=== PATIENT | male | born 2000 | race Caucasian/White ===

== ENCOUNTER 2019-09-12 01:53 | Emergency (ER) | payer SELFPAY ==
[2019-09-12] MEDS ORDERED: NS 0.9% 1000 ML** 1,000 ML IV ONE (01:57)
--- NOTE | 2019-09-12 02:00 | ED ---
Laceration/Wound HPI - HPI Summary HPI Summary: This patient is a 19 year old M presenting to [facility] by EMS with a chief complaint of lacerations in arm since prior to arrival. Pt believe he fell slipped on "dog shit" in his neighbors yard and fell on the ground into glass. Pt denies LOC, BOB, nausea, vomiting, and trouble walking. He called EMS after blood was spurting. EMS put a pressure dressing on that controlled the bleeding. he denies any other injur except lacerations to right arm. Pt has no medical problems, and no allergies. Pt smoke, and drinks. Pt has had two surgeries on R knee. Pt does not know when he last had a tetanus shot. after patient was here for a few minutes, police arrive and fill out papers for patient to have a mental health exam. According to police, pt punched the window of a neighboring frat house. Police also state that his friends are quite concerned about him. per police, his friends reports that pt has SI, and has recently had problems with girlfriend and parents. also had a friend recently commit suicide. - History of Current Complaint Chief Complaint: Laceration Stated Complaint: R ARM LAC PER EMS Time Seen by Provider: 09/12/19 01:53 Hx Obtained From: Patient Mechanism of Injury: Sharp/Blunt Trauma Onset/Duration: Sudden Onset Aggravating: Nothing Alleviating: Compression Timing: Constant Onset Severity: Moderate Current Severity: Mild Pain Intensity: 2 Pain Scale Used: 0-10 Numeric Associated Signs & Symptoms: Pain - Allergy/Home Medications Allergies/Adverse Reactions: Allergies Allergy/AdvReac Type Severity Reaction Status Date / Time No Known Allergies Allergy Verified 09/12/19 01:59 PMH/Surg Hx/FS Hx/Imm Hx Sensory History: Denies: Hx Legally Blind, Hx Deafness Opthamlomology History: Denies: Hx Legally Blind EENT History: Denies: Hx Deafness - Surgical History Surgical History: Yes Surgery Procedure, Year, and Place: two surgeries on R knee. - Immunization History Date of Tetanus Vaccine: 09/12/2019 - Social History Occupation: Student Lives: Dormitory/Roommates Alcohol Use: Weekly Substance Use Type: Reports: None Smoking Status (MU): Light Every Day Tobacco Smoker Review of Systems Negative: Fever Negative: Vomiting, Nausea Positive: Other - laceration Negative: Syncope All Other Systems Reviewed And Are Negative: Yes Physical Exam - Summary Physical Exam Summary: General: Well-developed, Well-nourished male. No acute distress. HEENT: Normocephalic, Atraumatic. Eyes: Conjuctiva normal, PERRL. Oropharynx: Clear, mucous membranes moist, (-) exudates. Neck: Soft, FROM, (-) lymphadenopathy, (-) thyromegaly, (-) JVD. Cardiovascular: Normal sinus rhythm, (-) murmur. Lungs: Clear to auscultation bilaterally (-) wheezes, (-) rales, (-) rhonchi. Abdomen: Soft, non-tender, non-distended, (-) organomegaly, normal bowel sounds. Back: (-) CVA tenderness Extremities: No edema. Laceration most proximal to elbow, 4 stiches 3.5 cm, second laceration 8.5 cm, 14 stiches Inside laceration 7.5 cm, 14 stiches Skin: Warm, dry, (-) rash. Neuro: Alert and oriented x3,move all extremities equally. No ataxia. No gait disturbance. No sensory deficit. No amnesia. Psychiatric: Mood normal, affect normal. Triage Information Reviewed: Yes Vital Signs On Initial Exam: Initial Vital Signs Temp 98.7 F 09/12/19 01:53 Pulse 98 09/12/19 01:53 Resp 18 09/12/19 01:53 BP 146/90 09/12/19 01:53 Pulse Ox 95 09/12/19 01:53 Vital Signs Reviewed: Yes Procedures - Sedation Patient Received Moderate/Deep Sedation with Procedure: No - Laceration/Wound Repair 1 Location: upper extremity Description: Linear Anesthesia: Local, 2.0% Length, Depth and Shape: 3.5 cm lenth linear Laceration/Wound Explored: clean, no foreign body removed Suture Type: Nylon - 4-0 Number of Sutures: 4 Layer Closure?: Yes Sterile Dressing Applied?: Yes 2 Location: upper extremity Description: Stellate Anesthesia: Local, 2.0% Length, Depth and Shape: 8.5 cm length, 9 mm deep, stellate Laceration/Wound Explored: clean, no foreign body removed Closure: Multilayer Debridement: moderate Suture Type: Nylon Number of Sutures: 14 Layer Closure?: Yes Sterile Dressing Applied?: Yes 3 Location: upper extremity Description: Irregular Anesthesia: Local, 2.0% Length, Depth and Shape: 7.5 cm length, 7 mm deep, irregular Irrigated w/ Saline (ccs): 100 Laceration/Wound Explored: clean, no foreign body removed Closure: Multilayer Debridement: minimal Suture Type: Nylon Number of Sutures: 14 Layer Closure?: Yes Sterile Dressing Applied?: Yes Diagnostics - Laboratory Result Diagrams: 09/12/19 02:07 09/12/19 02:07 Lab Statement: Any lab studies that have been ordered have been reviewed, and results considered in the medical decision making process. - Radiology Forearm X-Ray Radiology Interpretation Completed By: ED Physician Summary of Radiographic Findings: Forearm X-Ray reveals per ED physician no foreign bodies, no fracture. Pending official radiology report. Laceration Repair Course/Dx - Course Course Of Treatment: 19 year old male presents by ambulance from [facility]. he states after drinking alcohol tonight he slipped in [facility] yard and must have fell on glass, sustaining three lacerations to right forearm. no LOC. police later state he punched neighboring [facility] window. also reports from his [facility] friends that he has been depressed and talking about hurting himself. patients wounds repaired as above. he his acutely intoxicated with alcohol. awaiting sobriety and mental health exam. signed out at change of shift - Clinical Impression Provider Diagnoses: Acute alcohol intoxication, Laceration of forearm, right Discharge ED - Sign-Out/Discharge Documenting (check all that apply): Sign-Out Patient Signing out patient TO: Luis Felipe Campoverde - pending sobriety Receiving patient FROM: Isabel Khan - Discharge Plan - Attestation Statements Document Initiated by Benitoibe: Yes Documenting Scribe: France Santos Provider For Whom Aldo is Documenting (Include Credential): Dr. Isabel Khan MD Scribe Attestation: France Holt scribed for Dr. Isabel Khan MD on 09/12/19 at 0613. Scribe Documentation Reviewed: Yes Provider Attestation: The documentation as recorded by the [email or web address] accurately reflects the service I personally performed and the decisions made by me, Dr. Isabel Khan MD Status of Scribe Document: Viewed
[2019-09-12] MEDS ORDERED: Bacitracin OINTMENT* 0.5% 0.5 oz TUBE TOPICAL ONE (02:02)
[2019-09-12] MEDS ORDERED: Tetan/Diph/Pertus SYR(Tdap)* 0.5 ML SYR(BOOSTRIX) use SYR contains LATEX IM ONE (02:02)
[2019-09-12 02:26] LABS: ABS Lymphocytes 1.1 10^3/ul (1.0-4.8); ABS Monocytes 0.5 10^3/ul (0-0.8); ABS Neutrophils 5.5 10^3/ul (1.5-7.7); Eosinophil % 0.2 %; Hematocrit 40 % (42-52); Lymphocyte % 15.9 %; Mean Corpuscular HGB Conc 35 g/dL (31-36); Mean Corpuscular Hemoglobin 31 pg (27-31); Mean Corpuscular Volume 88 fL (80-94); Mean Platelet Volume 8.6 fL (7.4-10.4); Platelet Count 231 10^3/uL (150-450); Red Blood Count 4.55 10^6 /uL (4.18-5.48); Red Cell Distribution Width 12 % (10-15); White Blood Count 7.2 10^3/uL (3.5-10.8)
[2019-09-12 02:35] LABS: INR 1.07 (0.82-1.09)
[2019-09-12 02:44] LABS: Albumin 4.5 g/dL (3.2-5.2); Albumin/Globulin Ratio 1.7 (1-3); BUN/Creatinine Ratio 18.5 (8-20); EGFR African American 89.9 (>60); EGFR Non-African American 74.3 (>60); Globulin 2.7 g/dL (2-4); Potassium 3.4 mmol/L (3.5-5.0); Total Bilirubin 0.4 mg/dL (0.2-1.0); Total Protein 7.2 g/dL (6.4-8.9)
[2019-09-12] MEDS ORDERED: Lidocaine 1% INJ* 10 MG/ML 30 ML SDV ONE (03:14)
[2019-09-12 03:45] LABS: Urine Benzodiazepine Screen None Detected (None Detect); Urine Opiates Screen None Detected (None Detect)
[2019-09-12] MEDS ORDERED: Acetaminophen TAB* 325 MG PO ONE (05:57)
--- NOTE | 2019-09-12 07:03 | ED ---
Progress - Progress Note Progress Note: This patient is a sign-out from Dr. Isabel Khan to Dr. Luis Felipe Campoverde at 0700 on 09/12/2019 at shift change pending sobriety and MHE. - Results/Orders Results/Orders: Right hand XR: SOFT TISSUE SWELLING. NO ACUTE OSSEOUS INJURY. IF SYMPTOMS PERSIST, RECOMMEND REPEAT IMAGING. Dr. Campoverde has reviewed this radiology report. Re-Evaluation - Re-Evaluation First Eval Re-Evaluation Time: 08:09 Comment: Ordered right hand XR for patient's right hand swelling. Third Eval Re-Evaluation Time: 08:22 Comment: Per production corrugator and Dr. Del Valle, patient is safe for discharge. Course/Dx - Course Course Of Treatment: Mr. Echols was medically cleared in the ED and underwent a MHE. They felt that he was stable for discharge. An xray was obtained of his hand as it swelled quite a bit while he was here. This was negative and he was advised RICE. - Diagnoses Provider Diagnoses: Laceration Discharge ED - Sign-Out/Discharge Documenting (check all that apply): Patient Departure - Discharge, Receiving Sign-Out Receiving patient FROM: Isabel Khan - Discharge Plan Condition: Stable Disposition: HOME Patient Education Materials: Care For Your Stitches (ED), Laceration (ED) Referrals: [facility] [Primary Care Provider] - - Billing Disposition and Condition Condition: STABLE Disposition: Home - Attestation Statements Document Initiated by Benitoibe: Yes Documenting Scribe: Manuel Archibald Provider For Whom Aldo is Documenting (Include Credential): Luis Felipe Campoverde MD Scribe Attestation: IManuel, scribed for Luis Felipe Campoverde MD on 09/12/19 at 0956. Scribe Documentation Reviewed: Yes Provider Attestation: The documentation as recorded by the Manuel sidhu accurately reflects the service I personally performed and the decisions made by me, Luis Felipe Campoverde MD Status of Scribe Document: Viewed
[2019-09-12 08:42] VITALS: BP 0/0
== END 2019-09-12 08:30 | disposition home or self-care (01) ==
LOC: ED 01:53
DX: F10.129 Alcohol abuse with intoxication, unspecified (principal); S51.811A Laceration without foreign body of right forearm, initial encounter; W22.8XXA Striking against or struck by other objects, initial encounter; Y92.89 Other specified places as the place of occurrence of the external cause; Z23 Encounter for immunization; F17.200 Nicotine dependence, unspecified, uncomplicated
CPT/HCPCS: 12005; 36415; 80053; 80307; 80320; 83605; 85025; 85610; 90471; 90715; 96360; 99285; A9270-GY; G0480